=== PATIENT | male | born 1960 | race Two or more races ===

== ENCOUNTER → 2024-01-01 13:11 | Outpatient (REF) | payer BC, SELFPAY | LOC: HWRAD 13:11 | PROVIDERS: ATTENDING PHYSICIAN Internal Medicine | DX: M21.6X2 Other acquired deformities of left foot (principal) | CPT/HCPCS: 73630 ==

== ENCOUNTER 2024-11-30 10:15 | Day surgery (SDC) | payer BC, SELFPAY | END 2024-11-30 10:35 | disposition home or self-care (01) | LOC: GI 10:15 | PROVIDERS: ATTENDING PHYSICIAN Internal Medicine Gastroenterology | DX: Z12.11 Encounter for screening for malignant neoplasm of colon (principal); Z83.719 Family history of colon polyps, unspecified; K57.30 Diverticulosis of large intestine without perforation or abscess without bleeding; K64.8 Other hemorrhoids | CPT/HCPCS: G0105 ==

== ENCOUNTER → 2025-02-14 09:00 | Outpatient (REF) | payer BC, SELFPAY | LOC: HWRAD 09:00 | PROVIDERS: ATTENDING PHYSICIAN Specialist; FAMILY PHYSICIAN Internal Medicine | DX: R91.8 Other nonspecific abnormal finding of lung field (principal); R97.20 Elevated prostate specific antigen [PSA] | CPT/HCPCS: 71250; 76775 ==